=== PATIENT | female | born 1985 | race Caucasian/White ===

== ENCOUNTER 2017-01-11 05:10 | Emergency (ER) | payer MEDICARE | END 2017-01-11 07:39 | disposition home or self-care (01) | LOC: ER 05:10 | DX: R10.32 Left lower quadrant pain (principal); R31.9 Hematuria, unspecified; M54.5 Low back pain; F17.210 Nicotine dependence, cigarettes, uncomplicated; Z88.0 Allergy status to penicillin; Z88.5 Allergy status to narcotic agent; Z88.6 Allergy status to analgesic agent | CPT/HCPCS: 36415; 96374; 96375; 96376; J1885 ==

== ENCOUNTER 2017-01-16 15:49 | Emergency (ER) | payer MEDICARE | END 2017-01-16 18:05 | disposition home or self-care (01) | LOC: ER 15:49 | DX: N20.0 Calculus of kidney (principal); F17.210 Nicotine dependence, cigarettes, uncomplicated; Z88.0 Allergy status to penicillin; Z88.5 Allergy status to narcotic agent; Z88.6 Allergy status to analgesic agent | CPT/HCPCS: 96361; 96374; 96375; J1885 ==

== ENCOUNTER → 2017-02-01 | Day surgery (SDC) | payer MEDICARE | END | disposition home or self-care (01) | LOC: SDC 14:33 | DX: N13.2 Hydronephrosis with renal and ureteral calculous obstruction (principal); Z88.0 Allergy status to penicillin; Z88.5 Allergy status to narcotic agent; Z88.8 Allergy status to other drugs, medicaments and biological substances; Z79.899 Other long term (current) drug therapy; Z90.49 Acquired absence of other specified parts of digestive tract | CPT/HCPCS: C1894; C2617; J1885; J2704; Q9967 ==

== ENCOUNTER 2017-02-03 21:08 | Emergency (ER) | payer MEDICARE | END 2017-02-03 23:47 | disposition home or self-care (01) | LOC: ER 21:08 | DX: N13.2 Hydronephrosis with renal and ureteral calculous obstruction (principal); N39.0 Urinary tract infection, site not specified; F17.210 Nicotine dependence, cigarettes, uncomplicated; Z79.899 Other long term (current) drug therapy; Z88.0 Allergy status to penicillin; Z88.5 Allergy status to narcotic agent; Z88.6 Allergy status to analgesic agent | CPT/HCPCS: 36415; 96365; 96375; 96376; J0696; J1885 ==